=== PATIENT | male | born 1985 | race Caucasian/White ===

== ENCOUNTER 2017-01-15 20:40 | Emergency (ER) | payer OTHER ==
[2017-01-15] MEDS ORDERED: IBUPROFEN 600 MG TABLET ONE (21:32)
--- NOTE | 2017-01-16 07:44 | RAD ---
ANKLE-LEFT 3 VIEW COMPARISON: None HISTORY: Left ankle pain after slipping and falling. Lateral soft tissue swelling. FINDINGS: Views: Left ankle AP, mortise, lateral. Bones: Normal. Joints: Normal. Soft tissues: Marked soft tissue swelling, lateral left ankle. IMPRESSION: Marked soft tissue swelling, lateral left ankle. No fracture.
== END 2017-01-15 22:48 | disposition home or self-care (01) ==
LOC: ED 20:40
DX: S93.402A Sprain of unspecified ligament of left ankle, initial encounter (principal); F17.210 Nicotine dependence, cigarettes, uncomplicated; X50.0XXA Overexertion from strenuous movement or load, initial encounter; Y92.9 Unspecified place or not applicable
CPT/HCPCS: 73610; 99283 ×2; A9270